=== PATIENT | female | born 1955 | race African-American/Black ===

== ENCOUNTER 2020-05-28 16:52 | Emergency (ER) | payer OTHER ==
[~2020-05-28] VITALS: Ht 160 cm; Wt 45.4 kg
[~2020-05-28 16:52] MED LIST: ACET-9500 PO; ACET-9800 PO; AMLO10TA88 PO; CARV12.5 PO; CYCL-654 PO; DICL1GEL19 TP; DOXY100C9 PO; ETAN50CA SQ; HYDR200T5 PO; LID5T TP; LISI30TA6 PO; OXYC20TA PO; PANT40EC PO; PRED5TAB7 PO; TRAZ-471 PO; [UNRECOGNIZED DRUG - CODE] PO
--- NOTE | 2020-05-28 16:52 | NUR ---
BIBA TAKEN TO BED 9
[2020-05-28 16:55] VITALS: BP 85/62
--- NOTE | 2020-05-28 17:00 | NUR ---
PT BIBA FROM [facility] KNEE PAIN WITH OOZING WOUND S/P HITTING THE TABLE 3 DAYS AGO. PT STATES THE PAIN IS 10/10 WITH RADIATION TO RIGHT THIGH. DENIES FEVER, COUGH, SOB, CP, N/V/D. PMH: SEE LIST MEDS: SEE LIST
[2020-05-28] MEDS ORDERED: ACETAMINOPHEN 325 MG TAB PO ONE (17:10)
[2020-05-28] MEDS ORDERED: BACITRACIN OINT 500 UNITS/GM PKT TP ONE ×3 (18:01→18:10)
--- NOTE | 2020-05-28 18:42 | NUR ---
SPOKE WITH JORDIN ROTH FOR TRANSPORT BACK BUT SHE IS UNABLE TO BECAUSE SHE IS NOT IN THE AREA. PT BROTHER HAJA IS UNABLE TO PICK PT UP EITHER BECAUSE HE HAS LIMITED MOBILITY HIMSELF.
--- NOTE | 2020-05-28 19:16 | NUR ---
REPORT RECIEVED FROM ALEX HERNADEZ. TRANSFER OF CARE AT THIS TIME.
--- NOTE | 2020-05-28 19:16 | NUR ---
REPORT GAVE TO ALEX MEAD. TX OF CARE AT THIS TIME.
--- NOTE | 2020-05-28 20:20 | NUR ---
PT IN STABLE CONDITION. DINNER AT BEDSIDE, PT REFUSED TO EAT AT THIS MOMENT. PROVIDED WITH EXTRA BLANKET AND TURNED OUT LIGHTS PER REQUEST. BED LOCKED IN LOWEST POSITION, SIDE RAILS X2.
[2020-05-28] MEDS ORDERED: traZODone 50 MG TAB PO SCH (21:00)
--- NOTE | 2020-05-28 21:48 | NUR ---
PULLED TRAZODONE 50MG (1TAB) INSTEAD OF 2 TABS FOR A TOTAL OF 100 MG. WENT BACK INTO OMNICELL AND PULLED THE OTHER 50MG (1TAB), FOR A TOTAL OF 2 TABS AY 100 MG FOR ADMIN.
--- NOTE | 2020-05-28 22:02 | NUR ---
PT REPORTED GENERALIZED 04/24. ERMD MADE AWARE. VERIFIED WITH ERMD EVENING MEDS.
[2020-05-28] MEDS ORDERED: HYDROcodone/APAP 5/325 MG 1 TAB TAB PO ONE (22:05)
[2020-05-28] MEDS ORDERED: oxyCODONE 10 MG TABER PO ONE (22:10)
--- NOTE | 2020-05-28 23:41 | NUR ---
PT STATED PAIN CONT. 04/24. REPORTED TO ERMD.
[2020-05-29] MEDS ORDERED: oxyCODONE 10 MG TABER PO ONE ×3 (00:15→10:55)
--- NOTE | 2020-05-29 01:44 | NUR ---
PT POSITIONED FOR COMFORT. SURPLUS PROPERTY DISPOSAL AGENT AND PULSE OX IN PLACE. BED LOCKED AND IN LOWEST POSITION. SIDE RAILS X2.
--- NOTE | 2020-05-29 03:34 | NUR ---
PT RESTING IN BED, EQUAL RISE AND FALL OF CHEST WALL, UNLABORED BREATHING. BED LOCKED IN LOWEST POSITION, SIDE RAILS X2, PT ON NATURAL SCIENCE MANAGER AND PULSE OX.
--- NOTE | 2020-05-29 04:41 | NUR ---
PT STATED SHE HAS GENERALIZED 10/10 PAIN, ERMD MADE AWARE.
--- NOTE | 2020-05-29 06:00 | NUR ---
PT IN BED RESTING, EQUAL RISE AND FALL OF CHEST WALL, UNLABORED BREATHING. BED LOCKED IN LOWEST POSITION, ON TALENT DEVELOPMENT COORDINATOR AND PULSE OX. SIDE RAILS X2.
--- NOTE | 2020-05-29 07:22 | NUR ---
REPORT GIVEN TO ALEX COVARRUBIAS. TRANSFER OF CARE AT THIS TIME.
--- NOTE | 2020-05-29 08:49 | NUR ---
PT SLEEPING IN BED, RESPIRATIONS EVEN AND UNLABORED, VSS ON BEDSIDE MONITOR
--- NOTE | 2020-05-29 09:16 | NUR ---
PT SOILED SELF/BED-- PT GOWN, DIAPER, BEDSHEETS CHANGED. POSITIONED FOR COMFORT.
--- NOTE | 2020-05-29 10:51 | NUR ---
PT REQUESTING PAIN MED, DR. VIDAL NOTIFIED AND WILL PLACE ORDER.
[2020-05-29 13:37] VITALS: BP 104/67
--- NOTE | 2020-05-29 13:38 | NUR ---
Patient discharged with v/s stable. Written and verbal after care instructions given and explained. Patient alert, oriented and verbalized understanding of instructions. Ambulatory with steady gait. All questions addressed prior to discharge. ID band removed. Patient advised to follow up with PMD.
== END 2020-05-29 13:38 | disposition home or self-care (01) ==
LOC: MED 16:52
DX: S83.91XA Sprain of unspecified site of right knee, initial encounter (principal); S80.211A Abrasion, right knee, initial encounter; F41.9 Anxiety disorder, unspecified; G62.9 Polyneuropathy, unspecified; I10 Essential (primary) hypertension; J44.9 Chronic obstructive pulmonary disease, unspecified; Z87.81 Personal history of (healed) traumatic fracture; Z79.899 Other long term (current) drug therapy; K21.9 Gastro-esophageal reflux disease without esophagitis; X58.XXXA Exposure to other specified factors, initial encounter; Y93.89 Activity, other specified; Y92.89 Other specified places as the place of occurrence of the external cause; Y99.8 Other external cause status
CPT/HCPCS: 73562; 99285

== ENCOUNTER 2020-06-24 17:45 | Emergency (ER) | payer OTHER ==
[~2020-06-24] VITALS: Ht 167.6 cm; Wt 59.9 kg
[2020-06-24 17:58] VITALS: BP 99/60
[2020-06-24] MEDS ORDERED: MORPHINE SULFATE 4 MG/ML SYR IM ONE (18:20)
[2020-06-24] MEDS ORDERED: KETOROLAC 30 MG/ML VIAL IM ONE (19:55)
--- NOTE | 2020-06-24 20:12 | NUR ---
PTS LEFT ELBOW WAS PLACED IN A POSTERIOR SHORT ARM SPLINT. PT WAS THEN PLACED IN A SHOULDER IMOBOLIZER. PTS [facility].
[2020-06-24] MEDS ORDERED: KETOROLAC 30 MG/ML VIAL ONE (20:59)
[2020-06-24 22:05] VITALS: BP 99/60
== END 2020-06-24 22:04 | disposition home or self-care (01) ==
LOC: MED 17:45
DX: S42.402A Unspecified fracture of lower end of left humerus, initial encounter for closed fracture (principal); M06.9 Rheumatoid arthritis, unspecified; I10 Essential (primary) hypertension; K21.9 Gastro-esophageal reflux disease without esophagitis; J44.9 Chronic obstructive pulmonary disease, unspecified; Z79.899 Other long term (current) drug therapy; X58.XXXA Exposure to other specified factors, initial encounter; Y93.89 Activity, other specified; Y92.89 Other specified places as the place of occurrence of the external cause; Y99.8 Other external cause status
CPT/HCPCS: 29105; 73080; 96372; 99284; J1885; J2270